=== PATIENT | female | born 1950 | race Caucasian/White ===

== ENCOUNTER 2017-02-26 09:41 | Outpatient (CLI) | payer MEDICARE, OTHER | END 2017-02-26 19:42 | disposition home or self-care (01) | LOC: SMA 09:41 | PROVIDERS: ATTEND Specialist | DX: Z12.31 Encounter for screening mammogram for malignant neoplasm of breast (principal) | CPT/HCPCS: G0202 ==

== ENCOUNTER → 2018-08-24 | Emergency (ER) | payer OTHER, MEDICARE ==
--- NOTE | 2018-08-24 22:45 | NUR ---
Pt seen by admitting leave ER in stable condition. LWBS.
== END | disposition still patient (30) ==
LOC: SED 21:23
DX: Z53.21 Procedure and treatment not carried out due to patient leaving prior to being seen by health care provider (principal)

== ENCOUNTER 2023-08-16 16:07 | Emergency (ER) | payer OTHER, MEDICARE ==
[~2023-08-16] VITALS: Ht 165.1 cm; Wt 63.0 kg
[2023-08-16 16:17] VITALS: BP_SYST 145; PULSE 78; RESP 18; TEMP 97.3; O2SAT 97
[2023-08-16] MEDS: ASPIRIN 81 MG TAB.CHEW PO ONE ×2 (16:40→17:00)
[2023-08-16 16:43] LABS: BASOPHILS % (AUTO) 0.5 % (0.0-2.0); EOSINOPHILS % (AUTO) 0.6 % (0.0-4.0); HEMATOCRIT 38.5 % (36-48); HEMOGLOBIN 13.2 g/dL (12.0-16.0); LYMPHOCYTES % (AUTO) 28.7 % (20.5-51.5); MEAN CORPUSCULAR HEMOGLOBIN 33 pg (27-31); MEAN CORPUSCULAR HGB CONC 34 % (32-36); MEAN CORPUSCULAR VOLUME 96 fL (79.0-98.0); MONOCYTES # (AUTO) 0.4 K/uL (0.0-1.0); MONOCYTES % (AUTO) 6.4 % (1.7-9.3); NEUTROPHILS # (AUTO) 4.5 K/uL (1.8-7.7); NEUTROPHILS % (AUTO) 63.8 % (40.0-70.0); PLATELET COUNT (AUTO) 293 K/uL (130-430); RED BLOOD CELL COUNT(AUTO) 4.03 MIL/uL (4.2-6.2)
[2023-08-16 17:00] LABS: ANION GAP 13 (5-15); CARBON DIOXIDE 23 mmol/L (23-29); CHLORIDE 105 mmol/L (98-107); CREATININE 0.83 mg/dL (0.55-1.30); GLUCOSE 99 mg/dL (74-106); POTASSIUM 3.8 mmol/L (3.5-5.1); SODIUM SERUM 141 mmol/L (136-145); UREA NITROGEN, BLOOD 34 mg/dL (8-21)
[2023-08-16] MEDS ORDERED: METH-634 PO (18:52)
[2023-08-16] MEDS ORDERED: IBUP-1969 PO (18:52)
[2023-08-16 18:57] VITALS: BP_SYST 108; PULSE 72; RESP 16; TEMP 97.9; O2SAT 95
== END 2023-08-16 18:58 | disposition home or self-care (01) ==
LOC: SED 16:07
DX: R07.89 Other chest pain (principal); R07.81 Pleurodynia; R03.0 Elevated blood-pressure reading, without diagnosis of hypertension; E03.9 Hypothyroidism, unspecified; Z79.899 Other long term (current) drug therapy; Z79.2 Long term (current) use of antibiotics
CPT/HCPCS: 36415; 71045; 80048; 83880; 84484; 85025; 93005; 99285